=== PATIENT | female | born 1970 | race Caucasian/White ===

== ENCOUNTER 2017-09-22 01:34 | Emergency (ER) | payer OTHER ==
[~2017-09-22] VITALS: Ht 172.7 cm; Wt 100.0 kg
[~2017-09-22 01:34] MED LIST: ADDE5TAB PO; CLON.5 PO; META800 PO
[2017-09-22 02:10] VITALS: BP 128/76; PULSE 108; RESP 20; TEMP 98.6; O2SAT 97
[2017-09-22] MEDS ORDERED: ADDE20 PO (02:13)
--- NOTE | 2017-09-22 02:15 | PD ---
HPI Chief Complaint: [place] act Time Seen by Provider: 02:09 Travel History International Travel<30 days: No Contact w/Intl Traveler<30days: No Traveled to known affect area: No History of Present Illness HPI 47-year-old white female presents emergency department under [place] act by . Patient was pulled over doing 89 and a 35 by lower zone. Patient apparently had been drinking alcohol. On interaction with PD she claimed that she was distraught over her father being diagnosed with a brain tumor. She also states that she has to be there in the morning. During their interaction the patient became increasingly verbal and started stating that she was depressed and suicidal. Patient was brought to the ER for evaluation treatment. The patient here states that she merely stated that to get out of her DUI.. PFSH Past Medical History ADHD: Yes Anemia: Yes Anxiety: Yes High Cholesterol: Yes Herniated Disk: Yes (C7) Tetanus Vaccination: < 5 Years : 2 Para: 1 : 1 Past Surgical History Other Surgery: Yes ("FATTY TISSUE REMOVED FROM LEFT NECK" 2007) Family History Family Hypercholesterolemia: Yes (FATHER) Social History Alcohol Use: Yes (BOTTLE OF WINE EVERY OTHER DAY OR WEEKENDS, "MORE OF A BINGE DRINKER") Tobacco Use: No Substance Use: No Allergies-Medications (Allergen,Severity, Reaction): Coded Allergies: penicillin G (Unverified Allergy, Severe, 12/23/16) Reported Meds & Prescriptions Reported Meds & Active Scripts Active Skelaxin (Metaxalone) 800 Mg Tab 800 Mg PO Q8 Reported Klonopin (Clonazepam) 0.5 Mg Tab 0.5 Mg PO DAILY Adderall 5 mg (Amphetamine/Dextroamphetamine) 5 Mg Tab 1 Tab PO BID Review of Systems ROS Limitations: Intoxication Psychiatric: Positive: Mood Disorder, No: Anxiety, Depression, Suicidal Ideations, Substance Abuse, Homicidal Ideation Physical Exam Narrative GENERAL: Well-nourished, well-developed patient. Smells of EtOH appears intoxicated SKIN: Warm and dry. HEAD: Normocephalic and atraumatic. EYES: No scleral icterus. No injection or drainage. ENT: No nasal drainage noted. Mucous membranes pink. Airway patent. NECK: Supple, trachea midline. Moves head freely without obvious discomfort. CARDIOVASCULAR: Regular rate and rhythm without murmurs, gallops, or rubs. RESPIRATORY: Breath sounds equal bilaterally. No accessory muscle use. GASTROINTESTINAL: Abdomen soft, non-tender, nondistended. EXTREMITIES: No cyanosis or edema. BACK: Nontender without obvious deformity. No CVA tenderness. NEURO: Patient is alert and oriented. no sensorimotor deficits. Nonfocal. Slurred speech. PSYCH: No delusions. No auditory or visual hallucinations. MDM Medical Decision Making Medical Screen Exam Complete: Yes Emergency Medical Condition: Yes Medical Record Reviewed: Yes Differential Diagnosis MDM: High Differential diagnoses: Schizophrenia, schizoaffective disorder, bipolar, anxiety, depression, adjustment reaction, mood disorder NOS, ODD, depressive disorder NOS, dementia, dementia with agitation, psychosis NOS, substance induced mood disorder, DMDD, Asperger syndrome, infection,electrolyte abnormality, malingering. Narrative Course Mental health screening discussed with the patient. Psychiatric screen ordered. The patient has been evaluated by the psych screener. Both he and I agree that the patient is manipulating the system to get out of her DUI. She is not acutely suicidal homicidal. The patient admittedly states that she is not suicidal. The patient's [place] act has been lifted. The patient will be discharged home to a sober individual. This is adjustment reaction, malingering Diagnosis Primary Impression: Adjustment reaction Additional Impression: Malingering Additional Instructions: Rest. Increase fluids. Avoid alcohol. Avoid illegal substances. Follow-up with [facility] for detox. Do not operate a car or any heavy machinery under the influence of alcohol or drugs. Follow-up with a medical doctor this week. Return to the ER for emergencies Med/Other Pt SpecificInfo: No Meds Exist/No RX given Disposition: 01 DISCHARGE HOME Condition: Stable Alex Tejada September 22, 2017 02:15
== END 2017-09-22 03:36 | disposition home or self-care (01) ==
LOC: NEPD 01:34
DX: F43.22 Adjustment disorder with anxiety (principal); Z76.5 Malingerer [conscious simulation]
CPT/HCPCS: 99284